=== PATIENT | female | born 1990 | race Caucasian/White ===

== ENCOUNTER 2017-05-26 15:20 | Emergency (ER) | payer BC, OTHER ==
[2017-05-26 16:06] VITALS: BP 124/69
--- NOTE | 2017-05-26 17:25 | UC ---
Respiratory Complaint HPI - HPI Summary HPI Summary: The patient comes in today for: 1. Chest pain, choking sensation, fever: Onset: five days Palliative/provocative: Cough makes the chest pain better. When she breaths, she feels like she is choking on her fluids. Quality: Dull chest pain. Region: Retrosternal, but no radiation. Severity: 12/07 Time: Chest pain comes and goes. When she "breaths or coughs" the chest pain is there. But, it is not there if she holds her breath. Associated symptoms: Fever: five days ago she had 101.9--none since. Chest pain: retrosternal. Cough makes it better. Previous disease: asthma Cough production: Present--little yellow with streaks of red. Rhinitis: Yellow material Sinus pressure: Present. 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 Respiratory History: Asthma - Surgical History Surgical History: Yes Surgery Procedure, Year, and Place: tonsillectomy - Family History Known Family History: Positive: Cardiac Disease, Diabetes - Social History Occupation: Employed Full-time Alcohol Use: Rare Substance Use Type: None Smoking Status (MU): Light Every Day Tobacco Smoker Type: Cigarettes Amount Used/How Often: 1/2 ppd Length of Time of Smoking/Using Tobacco: age 14 yo Household Exposure Type: Cigarettes - Immunization History Most Recent Influenza Vaccination: NONE 2016 Most Recent Tetanus Shot: UTD Most Recent Pneumonia Vaccination: N/A Review of Systems Constitutional: Negative Skin: Negative Eyes: Negative ENT: Nasal Discharge Respiratory: Cough Cardiovascular: Chest Pain Gastrointestinal: Negative Genitourinary: Negative Motor: Negative All Other Systems Reviewed And Are Negative: Yes Physical Exam Triage Information Reviewed: Yes Appearance: Well-Appearing, No Pain Distress, Well-Nourished Vital Signs: Initial Vital Signs Temp 98.5 F 05/26/17 15:50 Pulse 61 05/26/17 15:50 Resp 18 05/26/17 15:50 BP 124/69 05/26/17 15:50 Pulse Ox 99 05/26/17 15:50 Vital Signs Reviewed: Yes Eyes: Positive: Conjunctiva Clear. Negative: Discharge ENT: Positive: Hearing grossly normal. Negative: Pharyngeal erythema, Nasal congestion, Nasal drainage, TM bulging, TM dull, TM red, Tonsillar swelling, Tonsillar exudate Dental: Negative: Gross Decay/Caries @, Dental Fracture @ Neck: Positive: Supple, Nontender, No Lymphadenopathy. Negative: Nuchal Rigidity Respiratory: Positive: Chest non-tender, No respiratory distress, No accessory muscle use, Rhonchi, Wheezing - Scattered, light wheezing.. Negative: Crackles Cardiovascular: Positive: RRR, No Murmur Abdomen Description: Positive: Nontender, No Organomegaly, Soft. Negative: Distended, Guarding Musculoskeletal: Positive: Strength Intact, ROM Intact, No Edema. Negative: Strength Limited @ Neurological: Positive: Alert, Muscle Tone Normal Psychological: Positive: Age Appropriate Behavior, Consolable Skin: Negative: rashes, breakdown UC Diagnostic Evaluation - Laboratory O2 Sat by Pulse Oximetry: 99 Respiratory Course/Dx - Course Course Of Treatment: Patient was told that I am not able to rule out serious and even life-threatening causes of chest pain here. We are limited in our ability to assess chest pain to our physical exam and limited testing which can rule out the more serious life-threatening causes. For this reason, I recommended that she go to the ER, but she declined. - Differential Dx/Diagnosis Differential Diagnosis/HQI/PQRI: Asthma, Bronchitis, Sinusitis Provider Diagnoses: Sinusitis,. Bronchitis. asthma Discharge - Discharge Plan Condition: Stable Disposition: AGAINST MEDICAL ADVICE Prescriptions: Albuterol HFA INHALER* [Ventolin HFA Inhaler*] 2 puff INH Q6H #1 mdi Budesonide Flexhaler 180 (NF) [Pulmicort Flexhaler 180 mcg/act (NF)] 2 inh IN BID #1 inh Doxycycline Hyclate [Morgidox [id number]] 100 mg PO BID #20 cap Hydrocodone Polistirex-Chlorph [Tussionex Pennkinetic Ext 10-8 mg/5Ml] 5 ml PO Q12HR #50 ml MDD 2 Patient Education Materials: Asthma (ED), Sinusitis (ED), Acute Bronchitis (ED) Referrals: Vladislav Chambers MD [Primary Care Provider] - 1 Week (Please see your primary care provider in about one to two weeks to see how well you are doing. If you get worse, please be seen sooner.)
== END 2017-05-26 17:47 | disposition left against medical advice (07) ==
LOC: UCCORT 15:20
DX: J32.9 Chronic sinusitis, unspecified (principal); J45.909 Unspecified asthma, uncomplicated; F17.210 Nicotine dependence, cigarettes, uncomplicated; Z88.1 Allergy status to other antibiotic agents; Z91.030 Bee allergy status; Z91.010 Allergy to peanuts
CPT/HCPCS: 99212; G0463

== ENCOUNTER 2017-11-10 16:26 | Emergency (ER) | payer OTHER ==
[2017-11-10 17:04] VITALS: BP 127/73
--- NOTE | 2017-11-10 17:21 | UC ---
Respiratory Complaint HPI - HPI Summary HPI Summary: Pt c/o nasal congestion, cough, sob X 3 days. Has history of asthma and has known exposure to influenza. - History of Current Complaint Chief Complaint: UCGeneralIllness Stated Complaint: UPPER RESP,COUGH Time Seen by Provider: 11/10/17 17:10 Hx Obtained From: Patient Hx Last Menstrual Period: 11/03/17 ?: No Onset/Duration: Gradual Onset, Lasting Days, Still Present, Worse Since - onset Timing: Constant Severity Initially: Mild Severity Currently: Mild Character: Cough: Nonproductive Aggravating Factors: Exertion, Deep Breaths, Recumbent Position Alleviating Factors: Nothing Associated Signs And Symptoms: Positive: URI, Nasal Congestion - Risk Factors Pulmonary Embolism Risk Factors: Smoking Cardiac Risk Factors: Smoking Tuberculosis Risk Factors: Smoking - Allergies/Home Medications Allergies/Adverse Reactions: Allergies Allergy/AdvReac Type Severity Reaction Status Date / Time Penicillins Allergy Intermediate Rash Verified 11/10/17 17:05 Sulfa Antibiotics Allergy Intermediate rash & Verified 11/10/17 17:05 vomiting bee stings Allergy Severe Anaphylatic Uncoded 11/10/17 17:05 Shock peanuts Allergy Severe throat Uncoded 11/10/17 17:05 swelling/rash/GI Home Medications: Home Medications Albuterol HFA INHALER* [Ventolin HFA Inhaler*] 2 puff INH Q6H PRN 11/10/17 [ History Confirmed 11/10/17] PMH/Surg Hx/FS Hx/Imm Hx Previously Healthy: Yes - Surgical History Surgical History: Yes Surgery Procedure, Year, and Place: tonsillectomy - Family History Known Family History: Positive: None, Cardiac Disease, Diabetes - Social History Occupation: Employed Full-time Lives: With Family Alcohol Use: Rare Substance Use Type: None Smoking Status (MU): Light Every Day Tobacco Smoker Type: Cigarettes Amount Used/How Often: 1/2 ppd Length of Time of Smoking/Using Tobacco: age 14 yo Have You Smoked in the Last Year: Yes Household Exposure Type: Cigarettes - Immunization History Most Recent Influenza Vaccination: none Most Recent Tetanus Shot: UTD Most Recent Pneumonia Vaccination: N/A Review of Systems Constitutional: Chills, Fatigue Skin: Negative Eyes: Negative ENT: Nasal Discharge Respiratory: Shortness Of Breath, Cough Cardiovascular: Negative Gastrointestinal: Negative Genitourinary: Negative Motor: Negative Neurovascular: Negative Musculoskeletal: Negative Neurological: Headache Psychological: Negative Is Patient Immunocompromised?: No All Other Systems Reviewed And Are Negative: Yes Physical Exam Triage Information Reviewed: Yes Appearance: Ill-Appearing Vital Signs: Initial Vital Signs Temp 97.8 F 11/10/17 17:00 Pulse 79 11/10/17 17:00 Resp 17 11/10/17 17:00 BP 127/73 11/10/17 17:00 Pulse Ox 99 11/10/17 17:00 Vital Signs Reviewed: Yes Eye Exam: Normal ENT Exam: Other ENT: Positive: Nasal congestion Dental Exam: Normal Neck exam: Normal Respiratory Exam: Normal Cardiovascular Exam: Normal Musculoskeletal Exam: Normal Neurological Exam: Normal Psychological Exam: Normal Skin Exam: Normal UC Diagnostic Evaluation - Laboratory O2 Sat by Pulse Oximetry: 99 Respiratory Course/Dx - Differential Dx/Diagnosis Differential Diagnosis/HQI/PQRI: Bronchitis, Influenza Provider Diagnoses: bronchitis Discharge - Discharge Plan Condition: Stable Disposition: HOME Prescriptions: Azithromycin TAB* [Zithromax TAB (Z-URMILA) 250 mg #6 tabs] 2 tab PO .TODAY, THEN 1 DAILY #1 urmila predniSONE TAB* [Deltasone TAB*] 20 mg PO DAILY #4 tab Patient Education Materials: Acute Bronchitis (ED) Forms: *Work Release Referrals: Vladislav Chambers MD [Primary Care Provider] - If Needed
== END 2017-11-10 17:47 | disposition home or self-care (01) ==
LOC: UCCORT 16:26
DX: J40 Bronchitis, not specified as acute or chronic (principal)
CPT/HCPCS: 87502; 99212; G0463